=== PATIENT | male | born 1980 | race Hispanic/Latino ===

== ENCOUNTER 2018-07-17 11:59 | Inpatient (IN) ==
--- NOTE | 2018-07-17 12:25 | EKG Report ---
Test Performed on : 07/17/2018 12:16:31 PM Test Reason : CHESTPAIN Blood Pressure : / mmHG Vent. Rate : 075 BPM Atrial Rate : 075 BPM P-R Int : 146 ms QRS Dur : 092 ms QT Int : 376 ms P-R-T Axes : 055 032 004 degrees QTc Int : 419 ms Normal sinus rhythm. Normal ECG No previous ECGs available Unconfirmed Result
--- NOTE | 2018-07-17 13:26 | Diag Imaging Result Doc PS360 ---
CHEST-1 VIEW - 07/17/2018 INDICATION: chest pain COMPARISON: None FINDINGS: The lungs are normally expanded and clear. Heart size and mediastinal contours are normal. No pneumothorax or pleural effusion. IMPRESSION: Negative exam. Electronically signed by Leo Walter 07/17/2018 1:23 PM
--- NOTE | 2018-07-17 13:44 | Diag Imaging Result Doc PS360 ---
CT HEAD W/O CONTRAST - 07/17/2018 INDICATION: lt facial numbness COMPARISON: None FINDINGS: The ventricles and sulci are normal in size and contour. No intracranial mass or hemorrhage. The skull is intact. The sinuses mastoids and middle ears are clear. IMPRESSION: Negative exam. This exam was performed using automated exposure control, adjustment of mA or kV according to patient size, and/or use of iterative reconstruction technique Electronically signed by Leo Walter 07/17/2018 1:42 PM
[2018-07-17 14:00] LABS: BASO# 0.02 X1000 (0.0-0.2); BASO% 0.3 % (0.0-0.8); EOS% 3.4 % (0.0-10.0); HEMATOCRIT 47.3 % (42.0-52.0); HEMOGLOBIN 16.2 g/dL (14.0-18.0); IMM GRAN# 0.02 X1000 (0.0-0.04); IMM GRAN% 0.3 % (0.0-0.5); LYMPH# 2.51 X1000 (1.2-3.4); LYMPH% 43.2 % (20.5-51.1); MCH 28.9 PG (27-31); MCHC 34.2 g/dL (33-37); MCV 84.5 FL (81-99); MONO% 8.6 % (1.7-9.3); MPV 12.1 FL (7.4-10.4); NEUT# 2.56 X1000 (1.4-6.5); NEUT% 44.2 % (42.2-75.2); PLT 153 X1000 (130-400); RDW 12.8 % (11.5-14.5); WBC 5.81 X1000 (4.8-10.8)
[2018-07-17 14:08] LABS: INR 0.95; PROTIME 13.5 Seconds (11.0-16.0)
[2018-07-17 14:09] LABS: PTT 28.9 Seconds (22.3-41.8)
[2018-07-17 14:50] LABS: AGAP 13; ALB/GLOB RATIO 1.6; ALBUMIN 4.6 g/dL (3.5-5.0); ALKALINE PHOSPHATASE 72 U/L (32-122); BUN 19 mg/dL (8-22); CALCIUM 8.9 mg/dL (8.8-10.2); CHLORIDE 105 mmol/L (98-107); COSMO 283; CREATININE 0.8 mg/dL (0.7-1.2); ESTIMATED GFR > 60; GLUCOSE 89 mg/dL (70-104); GOT 27 U/L (10-34); GPT 30 U/L (10-44); POTASSIUM 3.3 mmol/L (3.5-5.1); SODIUM 141 mmol/L (136-145); TCO2 23 mmol/L (25-35); TOTAL BILIRUBIN 0.39 mg/dL (0.20-1.00); TOTAL PROTEIN 7.5 g/dL (6.3-8.3)
[2018-07-17 14:53] LABS: CK PROFILE 325 U/L (24-204)
--- NOTE | 2018-07-17 15:08 | PROVIDER DOCUMENTATION ---
This chart was entered by Gabriela Schneider Scribe, acting as scribe for Adriano Lopez MD. HPI-Chest Pain - General Chief Complaint: Chest Pain Stated Complaint: CP X 3 DAYS FACE NUMB Time Seen by Provider: 07/17/18 12:37 Source: patient - History of Present Illness-CP Nature of Presenting Problem: Patient is a 38 year old male who presents to the ED with chest pain that radiates to left shoulder and left arm which started this morning. History of ND 11 years ago without stent placement. Also states facial numbness. Does not report diaphoresis or vomiting. Location: reports: central Chest Pain Radiation: reports: arms (left), shoulders (left) Quality of Pain: reports: aching Severity in ED: mild Onset/Duration: this morning Timing: still present Context/Activities at Onset: reports: light activity Modifying Factors: improves with: nothing Associated Symptoms: reports: denies symptoms Similar Symptoms Previously?: No Recently Seen Here or By Another Healthcare Provider: No Review of Systems - Adult - REVIEW OF SYSTEMS - ADULT Constitutional: reports: no symptoms reported Eyes: reports: no symptoms reported Ears, Nose, Mouth & Throat: reports: no symptoms reported Cardiovascular: reports: see HPI, chest pain. denies: heart murmur, irregular heart rate Respiratory: reports: no symptoms reported. denies: cough, shortness of breath, wheezing Gastrointestinal: reports: no symptoms reported. denies: abdominal pain, diarrhea, nausea, vomiting Genitourinary: reports: no symptoms reported Musculoskeletal: reports: see HPI, other (left shoulder and arm pain). denies: back pain, joint pain, neck pain Integumentary: reports: no symptoms reported Neurological: reports: numbness (facial). denies: dizziness/vertigo, headache/migraines, seizure, syncope Psychiatric: reports: no symptoms reported Endocrine: reports: no symptoms reported Hematologic/Lymphatic: reports: no symptoms reported Allergic/Immunologic: reports: no symptoms reported All Other Systems: Reviewed and Negative Past History - Adult - PAST MEDICAL HISTORY-ADULT Review of Records: reports: Nursing Assessment Review, Medications Reviewed, Social history reviewed & non-contributory. Major Childhood Illnesses: reports: denies history Cardiovascular: reports: hyperlipidemia Respiratory: reports: denies history Gastrointestinal: reports: denies history Obstetrical/Gynecological: reports: denies history Genitourinary: reports: denies history Musculoskeletal: reports: denies history Neurological: reports: denies history Psychiatric: reports: denies history Endocrine/Immune: reports: denies history Other Conditions: reports: denies history - PRIOR SURGERIES/PROCEDURES Surgical/Procedure History: reports: reviewed, not pertinent - IMMUNIZATION STATUS Childhood Immunizations: See Nurse Assessment Flu Vaccine: See Nurse Assessment - FAMILY HISTORY Family History: reviewed, not pertinent - SOCIAL HISTORY Smoking: cigarettes, less than 1 pack/day Provider spent 3-5 mins advising pt. on dangers of tobacco.: Discussed manners to quit use, and f/u contacts for add'l counseling. Substance Use: alcohol Alcohol Use Frequency: occasionally Physical Exam-General - PHYSICAL EXAM-ADULT Initial Vital Signs Reviewed: Yes - CONSTITUTIONAL General Appearance: alert, no apparent distress. negative: lethargic, slow to respond - HEAD, EARS, NOSE, MOUTH & THROAT HENMT: moist mucous membranes, normal ENT inspection. negative: angioedema - NECK Neck: non-tender, normal inspection. negative: lymphadenopathy - RESPIRATORY Respiratory: lungs clear, normal breath sounds, other (anterior chest wall tenderness). negative: rales, rhonchi - CARDIOVASCULAR Cardiovascular: normal peripheral pulses, regular rate, rhythm. negative: tac hycardia, systolic murmur - GASTROINTESTINAL (ABDOMEN) Abdominal Exam: normal bowel sounds, non tender, soft. negative: guarding, rebound - MUSCULOSKELETAL Extremity: non-tender, normal inspection. negative: deformity, swelling - SKIN Integumentary: normal color, normal turgor, warm/dry. negative: cyanosis, jaundice - PSYCHIATRIC Psych/Mental Status: normal mood/affect, oriented x 3. negative: paranoid, tearful - HEART Score HEART Score: History: Slightly Suspicious HEART Score: ECG: Normal HEART Score: Age: < or = 45 Years HEART Score: Risk Factors for Atherosclerotic Disease: > or = 3 Risk Factors or History of Atherosclerotic Disease HEART Score: Troponin: < or = Normal Limit Total HEART Score:: 2 Progress - PLAN OF CARE/RESULTS Progress/Plan/Lab Results: Laboratory Results - last 24 hr 07/17/18 07/17/18 07/17/18 12:24 12:24 12:24 WBC 5.81 RBC 5.60 Hgb 16.2 Hct 47.3 MCV 84.5 MCH 28.9 MCHC 34.2 RDW Std Deviation 12.8 Plt Count 153 MPV 12.1 H Immature Gran % (Auto) 0.3 Neut % (Auto) 44.2 Lymph % (Auto) 43.2 Benson % (Auto) 8.6 Eos % (Auto) 3.4 Baso % (Auto) 0.3 Immature Gran # (Auto) 0.02 Neut # (Auto) 2.56 Lymph # (Auto) 2.51 Benson # (Auto) 0.50 Eos # (Auto) 0.20 Baso # (Auto) 0.02 PT INR PTT (Actin FS) Sodium 141 Potassium 3.3 L Chloride 105 Carbon Dioxide 23 L Anion Gap 13 BUN 19 Creatinine 0.8 Estimated GFR/1.73 m2 > 60 BUN/Creatinine Ratio 24 Glucose 89 Calculated Osmolality 283 Calcium 8.9 Total Bilirubin 0.39 AST 27 ALT 30 Alkaline Phosphatase 72 Creatine Kinase 325 H Troponin T < 0.010 [id number] Pept Total Protein 7.5 Albumin 4.6 Globulin 2.9 Albumin/Globulin Ratio 1.6 07/17/18 07/17/18 12:24 12:24 WBC RBC Hgb Hct MCV MCH MCHC RDW Std Deviation Plt Count MPV Immature Gran % (Auto) Neut % (Auto) Lymph % (Auto) Benson % (Auto) Eos % (Auto) Baso % (Auto) Immature Gran # (Auto) Neut # (Auto) Lymph # (Auto) Benson # (Auto) Eos # (Auto) Baso # (Auto) PT 13.5 INR 0.95 PTT (Actin FS) 28.9 Sodium Potassium Chloride Carbon Dioxide Anion Gap BUN Creatinine Estimated GFR/1.73 m2 BUN/Creatinine Ratio Glucose Calculated Osmolality Calcium Total Bilirubin AST ALT Alkaline Phosphatase Creatine Kinase Troponin T [id number] Pept 30 Total Protein Albumin Globulin Albumin/Globulin Ratio Orders Category Date Time Status CT HEAD W/O CONTRAST [CT] Stat Exams 07/17/18 13:01 Completed cxr [CHEST-1 VIEW] [RAD] Stat Exams 07/17/18 13:00 Completed CBC WITH ELECTRONIC DIFF [HEME] Stat Lab 07/17/18 13:48 Ordered CK PROFILE [SP CHEM] Stat Lab 07/17/18 13:48 Ordered COMPREHENSIVE METABOLIC PANEL [CHEM] Stat Lab 07/17/18 13:48 Ordered PRO B-NATRIURETIC PEPTIDE Stat Lab 07/17/18 13:48 Ordered PROTIME WITH INR [COAG] Stat Lab 07/17/18 13:48 Ordered PTT [COAG] Stat Lab 07/17/18 13:48 Ordered TROPONIN T Stat Lab 07/17/18 13:48 Ordered EKG [EKG] Stat Ther 07/17/18 12:11 Draft Result Diagrams: 07/17/18 12:24 07/17/18 12:24 - EKG 1 Time of EKG reading by physician:: 12:16 EKG Read and Signed by:: Adriano Lopez EKG Interpretation (*Must complete 3 of following elements*): Normal Rate: 75 Rhythm: normal sinus rhythm [place]: normal QRS: normal [place] Interval: normal ST Wave: normal Comments: normal ECG - XRAY 1 XRAY Study: Chest Impression: See EMR Report ( CHEST-1 VIEW - 07/17/2018 INDICATION: chest pain COMPARISON: None FINDINGS: The lungs are normally expanded and clear. Heart size and mediastinal contours are normal. No pneumothorax or pleural effusion. IMPRESSION: Negative exam. Electronically signed by Leo Walter 07/17/2018 1:23 PM 07/17/18 1323 Interpreting Physician: Leo Walter MD Dictated Date/Time: 07/17/18 1323 cc: Adriano Lopez MD; None,PCP) - CT/MRI 1 CT Study: Head Impression: See EMR Report ( CT HEAD W/O CONTRAST - 07/17/2018 INDICATION: lt facial numbness COMPARISON: None FINDINGS: The ventricles and sulci are normal in size and contour. No intracranial mass or hemorrhage. The skull is intact. The sinuses mastoids and middle ears are clear. IMPRESSION: Negative exam. This exam was performed using automated exposure control, adjustment of mA or kV according to patient size, and/or use of iterative reconstruction technique Electronically signed by Leo Walter 07/17/2018 1:42 PM 07/17/18 1342 Interpreting Physician: Leo Walter MD Dictated Date/Time: 07/17/18 1339 cc: Adriano Lopez MD; None,PCP) - CONSULTS/PCP/HOSPITALIST Notification #1 *Consult/PCP/Hospitalist*: ANKIT Gross for Hospitalist Time Discussed: 15:05 (Dr. Raymundo accepted admit ) Reason/Comments: Dr. Lopez consulted with Ginny about patient. Consult Disposition: Admit Departure - Departure Date of Disposition Decision: 07/17/18 Time of Disposition Decision: 15:05 DIAGNOSIS: Chest pain, HTN (hypertension), Nonadherence to medication Disposition: ADMITTED INPATIENT 09 Certified Medical Emergency: Emergent Condition: Fair Referrals and Follow-Ups: None,PCP [Primary Care Provider] - - Critical Care Note This patient required my direct & personal management of CC.: No Attestation - Physician/ HELIO Attestation Patient care was provided by Advanced Practice Provider:: No The physician spent face to face time with patient:: Yes Advanced Practice Provider documentation review:: Supervising physician onsite and consulted in the evaluation and care of this patient. The physician did have a face to face encounter with the patient. This chart was documented by the indicated scribe, (Gabriela Schneider Scribe) and accurately reflects the services I performed and decisions made by me, Adriano Lopez MD, as attested by the provider's signature.
[2018-07-17 15:10] LABS: CK INDEX 1.6 (0.0-2.5); CK-MB 5.35 ng/mL (0.0-5.0)
[2018-07-17] MEDS ORDERED: ASPIRIN PO STA (16:56)
--- NOTE | 2018-07-17 17:19 | HISTORY AND PHYSICAL ---
CHIEF COMPLAINT: Chest pain and left-sided facial numbness. HISTORY OF PRESENT ILLNESS: This is a 38-year-old gentleman with a history of CAD status post OK 11 years ago, subsequent stent placement on no medications for the last 10 years. He states that he started having chest pain 3 days ago, he felt it was a pressure type pain that radiated to both upper arms. Yesterday he began to have some numbness to the left side of his face as well as numbness down the outside of both arms down into his 4th and 5th fingers. He states that the initial pain started while he was at work, with movement the pain was aggravated, with sitting or lying the pain did decrease but just to a 1-2. He denied any shortness of breath, any syncope, palpitations, dizziness. PAST MEDICAL HISTORY: 1. CAD status post OK and stents 11 years ago. 2. Hyperlipidemia. PAST SURGICAL HISTORY: He denies. SOCIAL HISTORY: He smokes about half a pack a day. He denies alcohol or illicit drug use. He is lives with his and child. ALLERGIES: He denies any. HOME MEDICATIONS: None. REVIEW OF SYSTEMS: Discussed with patient with pertinent positives stated in HPI. He denied any syncope, dizziness, shortness of breath, cough, fever, chills, PND, orthopnea, any palpitations, any nausea, vomiting, diarrhea, constipation, black or bloody vomitus or stools, hematuria, dysuria, frequency, urgency. PHYSICAL EXAMINATION: GENERAL: This is a 38-year-old gentleman who is lying in the stretcher in the ER in no distress. VITAL SIGNS: Blood pressure is 118/70 with a heart rate of 82, respirations are 16, O2 saturations are 97-98% on room air. HEENT: Pupils are equal, round, react to light. EOMs are intact. Sclerae are anicteric. Head is normocephalic, atraumatic. Mucous membranes are moist. NECK: Supple. Trachea midline. He has no JVD. PULMONARY: Her breath sounds are clear with no increased work of breathing noted. Chest rise and fall symmetric with respiration. He does have some anterior chest wall tenderness to palpation. CARDIOVASCULAR: Regular rate and rhythm. S1 and S2 appreciated. No murmurs. He has no lower extremity edema. Peripheral pulses are palpable x4 extremities. Calves are nontender to palpation. GASTROINTESTINAL: Abdomen soft, nontender, nondistended with bowel sounds in all 4 quadrants. : He denies any CVA or suprapubic tenderness. SKIN: Warm and dry with good turgor. NEUROLOGIC: He is alert, oriented x3. LABS: WBC is 5.8 with hemoglobin 16.2, hematocrit 47.3 and platelets of 153,000. Sodium 141, potassium 3.3, BUN 19, creatinine 0.8 with glucose of 89. CK is 325 with CK-MB 5.35. Troponins are negative on multiple occasions. Chest x-ray reveals a negative exam. CT of the head reveals negative exam. Ventricles and sulci are normal in size and contour. No intracranial mass or hemorrhage. Skull is intact. Sinuses, mastoids and middle ears are clear . EKG reveals sinus rhythm at a rate of 75. ASSESSMENT AND PLAN: 1. Chest pain. The patient complained of chest pressure although at this time he complains of chest wall pain with palpation. Troponins are negative. He will be admitted to the hospital placed on telemetry. Will continue to rule out with enzymes, repeat EKGs and reevaluate in the morning. He will be NPO after midnight. 2. Hyperlipidemia. We will draw lipid panel in the morning. 3. History of coronary artery disease status post myocardial infarction with stents 11 years ago. The patient is on no medications. He states he took medications for a few months after his myocardial infarction. Will keep him n.p.o. and pending lab results Lexiscan in the morning. 4. Bilateral arm numbness. CT of the head was negative, will continue to evaluate. 5. Hypokalemia. We will supplement potassium. 6. For deep vein thrombosis prophylaxis we will use Lovenox and gastrointestinal prophylaxis Prilosec. Further treatments pending hospital course. Dictated by ANKIT Borja for Orlando Raymundo MD This chart was documented by, ANKIT Borja and accurately reflects the services performed, treatment plan and medical decisions as attested by the providers signature Orlando Raymundo MD. cc: ANKIT Borja MD
--- NOTE | 2018-07-17 19:20 | HISTORY AND PHYSICAL ---
SUBJECTIVE: Mr. Quach is a 38-year-old male who presented to the emergency department today because of chest pain associated with bilateral upper extremity numbness. The patient was evaluated in the ER, and because of his past history of coronary artery disease and dyslipidemia, he has been admitted to rule out any acute coronary syndrome. OBJECTIVE: Vital signs: Currently, blood pressure is 127/75, pulse is 62, respirations are 18. The patient is saturating 99% on room air. General: Mr. Quach is a 38-year-old male. He is in bed. He is not in any cardiopulmonary distress. More specifically, positive on his physical exam is parasternal left chest wall tenderness and tenderness on mobilization of the left shoulder. Chest: Clear to auscultation. Cardiovascular: Regular rate and rhythm. Abdomen: Soft. Extremities: No pedal edema. LABORATORIES: The patient's lab work has also been reviewed. So far, troponins have been done twice and are negative. EKG showed normal sinus rhythm with a rate of about 75; no ST-segment or T-waves abnormality was seen. ASSESSMENT: Mr. Quach is a 38-year-old male with a history of sporadic hypertension, coronary artery disease, and dyslipidemia, who came to the emergency department because of chest discomfort. Some of the features seems to be very atypical. He has been admitted to rule out coronary artery disease. 1. Atypical chest pain. 2. Bilateral upper extremity numbness. We will want to rule out any cervical radiculopathy. The patient will have an MRI in the morning. 3. Sporadic blood pressure elevation. Blood pressure at this point seems to be under control. We will continue to keep a close eye. 4. Dyslipidemia. Lipid profile will be rechecked. I have also reviewed the [employer] notes, and I agree with the History and Physical. Please refer to the details in the chart. cc: Orlando Raymundo MD
[2018-07-17 21:52] LABS: CK INDEX 1.5 (0.0-2.5); CK-MB 3.87 ng/mL (0.0-5.0)
[2018-07-18] MEDS ORDERED: PRILOSEC PO SCH (07:00)
[2018-07-18 07:33] LABS: CHOLESTEROL 149 mg/dL (0-200); HDL 26 mg/dL (35-55); LDL 74 mg/dL; TRIGLYCERIDES 243 mg/dL (39-160); VLDL 49 mg/dL
[2018-07-18 07:43] LABS: HEMATOCRIT 45.5 % (42.0-52.0); HEMOGLOBIN 15.2 g/dL (14.0-18.0); MCH 29.2 PG (27-31); MCHC 33.4 g/dL (33-37); MCV 87.5 FL (81-99); MPV 11.9 FL (7.4-10.4); RBC 5.2 XMIL (4.7-6.1); WBC 5.59 X1000 (4.8-10.8)
[2018-07-18 07:44] LABS: AGAP 9; BUN 16 mg/dL (8-22); CALCIUM 8.9 mg/dL (8.8-10.2); CHLORIDE 109 mmol/L (98-107); COSMO 286; CREATININE 0.7 mg/dL (0.7-1.2); ESTIMATED GFR > 60; GLUCOSE 99 mg/dL (70-104); POTASSIUM 3.8 mmol/L (3.5-5.1); SODIUM 143 mmol/L (136-145); TCO2 25 mmol/L (25-35)
--- NOTE | 2018-07-18 08:05 | EKG Report ---
Test Performed on : 07/18/2018 06:48:59 AM Test Reason : CP Blood Pressure : / mmHG Vent. Rate : 058 BPM Atrial Rate : 058 BPM P-R Int : 150 ms QRS Dur : 094 ms QT Int : 416 ms P-R-T Axes : 058 054 029 degrees QTc Int : 408 ms Sinus bradycardia. Otherwise normal ECG When compared with ECG of 17-JUL-2018 12:16, (Unconfirmed) No significant change was found Unconfirmed Result
[2018-07-18] MEDS ORDERED: LEXISCAN ONE (08:09)
[2018-07-18] MEDS ORDERED: ASPIRIN PO SCH (09:00)
[2018-07-18] MEDS ORDERED: LOVENOX SUBQ SCH (09:00)
--- NOTE | 2018-07-18 11:23 | Diag Imaging Result Doc PS360 ---
EXAM: MRI C-SPINE W/WO CONTRAST 07/18/2018 HISTORY: bilateral upper extremity numbness TECHNIQUE: T1, T2, STIR sagittal, T1 and T2 axial and post gadolinium-enhanced T1 sagittal and axial. COMMENT: There are no previous studies available for comparison. No intrathecal masses or signal abnormalities are present. There is no evidence of abnormal gadolinium enhancement. At the C2-3 level there is no spinal or foraminal stenosis. At C3-4 there is posterior disc bulge and mild narrowing of the left foramen. At the C4-5 level there is mild left foraminal stenosis but no evidence of spinal stenosis. The disc is slightly desiccated. At C5-6 there is no evidence of significant spinal or foraminal stenosis. At C6-7 there is no spinal or foraminal stenosis. At C7-T1 there is no spinal or foraminal stenosis. IMPRESSION: Minimal degenerative changes as described above. No evidence of intramedullary mass or signal abnormality. Electronically signed by Peter Bishop 07/18/2018 11:20 AM
--- NOTE | 2018-07-18 14:07 | Diag Imaging Result Document ---
PROCEDURE NAME: MYOCARDIAL PERF SCAN, STR/REST - 07/17/2018 STUDY: Rest/stress walking Lexiscan myocardial perfusion study. REQUESTING DOCTOR: Hospitalist at [facility]. REASON: History of myocardial infarction and stent. Chest pain. DESCRIPTION: The patient came into the nuclear lab and received a rest injection of technetium 99 sestamibi 12.1 mCi. Multiple tomographic views of the cardiac structures were obtained at rest. Subsequently, the patient underwent walking Lexiscan protocol, 0.4 mg of Lexiscan was infused. At peak infusion, injected with technetium 99 sestamibi 34.3 mCi. Multiple tomographic views of the cardiac structures were obtained following the completion of the exercise protocol. SUMMARY OF THE ELECTROCARDIOGRAPHIC PORTION OF THE STUDY: Resting electrocardiogram shows sinus rhythm, rate of 63 beats per minute. Resting blood pressure 128/86. Resting ECG shows a pattern consistent with left ventricular hypertrophy, early repolarization, rightward axis. During the protocol, the heart rate increased to a maximum of 122 beats per minute, the blood pressure went up to 158/90. The peak infusion on ECG shows sinus tachycardia with a nonspecific T wave change in the inferior leads. Following the completion of test, the heart rate and blood pressure returned back to baseline. The patient reported no chest pain, shortness of breath, or palpitations. The ECG during the recovery phase just showed the nonspecific T wave abnormality that was actually present on the resting ECG. SUMMARY OF THE MYOCARDIAL PERFUSION PORTION OF THE STUDY: Poststress tomographic views of the left ventricle showed essentially normal myocardial perfusion. I do not see evidence of any significant postexercise defect. The rest images showed normal perfusion. The polar plots revealed the same. There is no convincing episode of neither inducible ischemia nor myocardial scar. Gated SPECT shows normal left ventricular systolic function, ejection fraction calculated by the [employer] [employer] protocol is 71%. No wall motion abnormality is noted. Lung/heart ratio is normal. TID is normal. SUMMARY: The study shows: 1. Unremarkable electrocardiographic response to a walking Lexiscan protocol. 2. Normal poststress myocardial perfusion scan. There is no scintigraphic evidence of pharmacologic-induced myocardial ischemia. 3. Normal left ventricular systolic function, ejection fraction of 71%, normal ventricular volumes, no wall motion abnormality. 4. The study represents low risk for ischemic events. cc: Adis N. GarrisonMD Loan mc CRNP
[2018-07-18 16:50] VITALS: BP 146/88
--- NOTE | 2018-07-18 20:30 | ECHO REPORT ---
ORDER DATE: 07/18/2018 INDICATION: A 38-year-old male with chest pain. M-MODE MEASUREMENTS: Left ventricle end diastole: 4.6. Left ventricle end systole: 3.0. Posterior wall: 1.2. Interventricular septum: 1.3. Left atrium: 3.2. Aortic diameter: 3.2. SUMMARY OF 2-DIMENSIONAL IMAGIN. Left ventricular function is normal. Ejection fraction is estimated at 65%. No wall motion abnormality noted. 2. The right ventricle appears to be normal. 3. The aortic valve has 3 cusps. They open normally. Color flow mapping unremarkable. 4. The mitral valve is normal. Color flow mapping unremarkable. 5. Pulsed wave Doppler of mitral inflow is normal. 6. Tissue Doppler of septal and lateral mitral annulus averages 11 cm. 7. There is no diastolic dysfunction. 8. The pulmonic valve is normal. Color flow mapping unremarkable. 9. The tricuspid valve is normal. Color flow mapping unremarkable. 10.The inferior vena cava is not well visualized. The pulmonary pressure is deemed to be normal. 11.There is no pericardial effusion. No mass, no thrombus. SUMMARY: This echocardiographic study appears to be grossly within normal range. Clinical correlation recommended. cc: MD Orlando Blackburn MD
--- NOTE | 2018-07-19 06:46 | DISCHARGE SUMMARY ---
ADMISSION DATE: 07/17/2018 DISCHARGE DATE: 07/18/2018 DISPOSITION: Home. FOLLOW-UP: Will be with the patient's PCP. CONSULTATION DURING THIS ADMISSION: None. IMAGING STUDIES: Of significance 1. A chest x-ray was done initially which was negative. 2. A CT scan of the head was negative. 3. A myocardial perfusion scan shows ejection fraction of 71, with normal ventricular volumes. No wall motion abnormality. Normal post-stress myocardial perfusion scan. No sensitive graphic evidence of pharmacologically induced myocardial infarction. 4. An MRI of the cervical spine showed minimal degenerative changes. No evidence of intramedullary mass or signal abnormality. ADMISSION DIAGNOSES: 1. Atypical chest pain. 2. Gastroesophageal reflux disease. 3. Remote history of coronary artery disease. 4. Dyslipidemia. 5. Degenerative mild cervical spondylosis. 6. Tinea inguinale. DISCHARGE MEDICATIONS: 1. Omeprazole 40 mg daily. 2. Miconazole cream. PRESENTING COMPLAINT: Chest pain, hand numbness. HISTORY OF PRESENTING COMPLAINT: Mr. Quach is a 38-year-old male who according to him, had some mild [place] over 10 years ago in [place]. He said at the time his blood pressure was also high and he was told his cholesterol was high. After a couple months of treatment, all medications were discontinued because he had improved. He seems to have been doing fairly okay and not on any medications. He came to the emergency department because of intermittent chest pain. The patient because of his background history, he was admitted to rule out any significant coronary artery disease. HOSPITAL COURSE: Mr. Quach was admitted to the medical floor. Was initially adequately hydrated and multiple blood works were done to follow up on his troponins which were all negative. EKGs were done which was also unrevealing. A stress test was ordered ultimately which came back negative. Because of the numbness in his both upper extremities, an MRI of the neck was done which was negative. Mr. Quach also refers that he has a very bad history of GERD and that his primary care doctor was treating him with PPI, but he has run out of medication, so we gave him a prescription of omeprazole for GERD. He is also advised to follow up with his primary care doctor and that if the symptoms continues, he needs to probably be seen by GI for outpatient endoscopy. At the time of the discharge, Mr. Quach was completely asymptomatic. was at the bedside with him. All the discharge instructions were explained to both of them and both voiced understanding. Time spent for discharge was 36 minutes. cc: Orlando Raymundo MD
== END 2018-07-18 18:11 | disposition home or self-care (01) | DRG 313 ==
LOC: ED 11:59 → EDIPHOLD 17:24 → 3N 20:51
PROVIDERS: ATTEND Internal Medicine
CPT/HCPCS: 70450; 71010; 71045; 72156; 78452; 80048; 80053; 80061; 82550; 82553; 83735; 83880; 84443; 84484; 85025; 85027; 85610; 85730; 93005; 93010; 93017; 93306; 99285; A9270; A9500; A9579; J1650; J2785